=== PATIENT | male | born 1975 | race Caucasian/White ===

== ENCOUNTER 2024-01-26 15:28 | Inpatient (IN) | payer BC ==
[~2024-01-26] VITALS: Ht 167.6 cm; Wt 90.7 kg
[2024-01-26] MEDS ORDERED: HYDRALAZINE 20MG/ML VIAL IV ONE (17:15)
[2024-01-26] MEDS: SODIUM CHLORIDE 0.9% 1,000 ML IV ONE (17:15)
[2024-01-26 18:38] LABS: BASOPHILS % 0.8 % (0.0-2.0); EOSINOPHILS % 0.5 % (0.0-5.0); HEMATOCRIT. 42.2 % (42.0-52.0); LYMPHOCYTES % 26.6 % (20.0-50.0); MEAN CORPUSCULAR HEMOGLOBIN 31.6 pg (28.0-32.0); MEAN CORPUSCULAR HGB CONC 35.7 g/dL (31.0-37.0); MEAN CORPUSCULAR VOLUME 88.5 fL (80.0-94.0); MEAN PLATELET VOLUME 8.5 fl (7.4-10.4); MONOCYTES % 8.8 % (2.0-8.0); NEUTROPHILS % 63.3 % (40.0-76.0); PLATELET 263 x1000/uL (130-400); RED BLOOD CELL COUNT 4.76 mill/uL (4.7-6.1); RED CELL DISTRIBUTION WIDTH 12.7 % (11.6-14.6); WHITE BLOOD COUNT 5.4 x1000/uL (4.5-11.0)
[2024-01-26 18:52] LABS: CHLORIDE 99 mEq/L (98-107); POTASSIUM 4.2 mEq/L (3.5-5.1); SODIUM 134 mEq/L (136-145)
[2024-01-26 18:53] LABS: CALCIUM 9.4 mg/dL (8.7-10.4); CARBON DIOXIDE 29 mEq/L (21-32)
[2024-01-26 18:58] LABS: CREATININE 0.9 mg/dL (0.6-1.3); GLUCOSE 279 mg/dL (70-105); UREA NITROGEN BLOOD 9 mg/dL (9-23)
[2024-01-26 18:59] LABS: TROPONIN I HIGH SENSITIVITY 37 ng/L (3.0-53)
[2024-01-26] MEDS: HYDRALAZINE 20MG/ML VIAL IV NR (20:50)
[2024-01-26] MEDS: CLONIDINE 0.1MG TABLET PO ONE (20:51)
[2024-01-26 22:28] LABS: *AMPHETAMINES SCREEN URINE NEGATIVE (NEGATIVE); *BARBITURATES SCREEN URINE NEGATIVE (NEGATIVE); *BENZODIAZEPINES SCREEN URINE NEGATIVE (NEGATIVE); *COCAINE SCREEN URINE NEGATIVE (NEGATIVE); METHADONE URINE SCREEN NEGATIVE (NEGATIVE)
[2024-01-26 22:29] LABS: CANNABINOID URINE SCREEN NEGATIVE (NEGATIVE); ECSTASY MDMA SCREEN URINE NEGATIVE (NEGATIVE); OPIATES URINE SCREEN NEGATIVE (NEGATIVE); PHENCYCLIDINE URINE SCREEN NEGATIVE (NEGATIVE)
[2024-01-26 22:31] LABS: TROPONIN I HIGH SENSITIVITY 40 ng/L (3.0-53)
[2024-01-27] MEDS ORDERED: IPRATROPIUM/ALBUTEROL 0.5-3(2.5)MG/3ML NEB HHN PRN (00:45)
[2024-01-27] MEDS ORDERED: ONDANSETRON HCL 4MG/2ML INJ IV PRN (00:45)
[2024-01-27] MEDS ORDERED: DOCUSATE SODIUM 100MG CAPSULE PO PRN (00:45)
[2024-01-27] MEDS ORDERED: ACETAMINOPHEN 325MG TABLET PO PRN ×2 (00:45)
[2024-01-27] MEDS ORDERED: DEXTROSE 50% WATER 50ML SYRINGE IV PRN (00:45)
[2024-01-27 06:21] LABS: BASOPHILS % 0.5 % (0.0-2.0); EOSINOPHILS % 0.7 % (0.0-5.0); HEMATOCRIT. 43.5 % (42.0-52.0); HEMOGLOBIN. 14.6 g/dL (14.0-18.0); LYMPHOCYTES % 24.4 % (20.0-50.0); MEAN CORPUSCULAR HEMOGLOBIN 30.5 pg (28.0-32.0); MEAN CORPUSCULAR HGB CONC 33.6 g/dL (31.0-37.0); MEAN CORPUSCULAR VOLUME 90.8 fL (80.0-94.0); MEAN PLATELET VOLUME 8.8 fl (7.4-10.4); MONOCYTES % 8.4 % (2.0-8.0); PLATELET 256 x1000/uL (130-400); RED BLOOD CELL COUNT 4.79 mill/uL (4.7-6.1); RED CELL DISTRIBUTION WIDTH 12.7 % (11.6-14.6); WHITE BLOOD COUNT 5.6 x1000/uL (4.5-11.0)
[2024-01-27 06:29] LABS: D-DIMER < 0.19 mg/L FEU (<0.50); PROTHROMBIN TIME 10.8 sec (9.6-11.0)
[2024-01-27 06:38] LABS: CARBON DIOXIDE 23 mEq/L (21-32); CHLORIDE 102 mEq/L (98-107); POTASSIUM 3.4 mEq/L (3.5-5.1); SODIUM 136 mEq/L (136-145)
[2024-01-27 06:43] LABS: CREATININE 0.7 mg/dL (0.6-1.3); GLUCOSE 245 mg/dL (70-105)
[2024-01-27 06:44] LABS: LDL CHOLESTEROL 134 mg/dL (5-100); TRIGLYCERIDE 130 mg/dL (0-150); UREA NITROGEN BLOOD 8 mg/dL (9-23)
[2024-01-27 06:45] LABS: ALANINE AMINOTRANSFERASE 19 IU/L (10-49); ALBUMIN 4.1 g/dL (3.2-4.8); ASPARTATE AMINOTRANSFERASE 18 IU/L (<34); CREATINE KINASE MB FRACTION 0.8 ng/mL (0.5-3.6)
[2024-01-27 06:46] LABS: BILIRUBIN DIRECT 0.4 mg/dL (<=3.0); BILIRUBIN TOTAL 1.4 mg/dL (0.1-1.0); CHOLESTEROL 206 mg/dL (<200); HDL CHOLESTEROL 53 mg/dL (>55); PHOSPHORUS 2.8 mg/dL (2.5-4.9); PROTEIN TOTAL 6.3 g/dL (6.0-8.3)
[2024-01-27] MEDS: HYDRALAZINE HCL 50MG TABLET PO SCH (06:46)
[2024-01-27 06:49] LABS: T4 FREE 1.24 ng/dL (0.89-1.76)
[2024-01-27] MEDS: BLOOD SUGAR DIAGNOSTIC STRIP TEST SCH (06:49)
[2024-01-27 06:50] LABS: THYROID STIMULATING HORMONE 1.05 uIU/mL (0.55-4.78)
[2024-01-27] MEDS: INSULIN LISPRO 100 UNITS/ML SUBCUT SCH (07:00)
[2024-01-27] MEDS: AMLODIPINE 10MG TABLET PO SCH (09:10)
[2024-01-27] MEDS: FAMOTIDINE 20MG/2ML VIAL IV SCH (09:10)
[2024-01-27] MEDS: ASPIRIN 81MG TABLET PO SCH (09:10)
[2024-01-27] MEDS: ENOXAPARIN 30MG/0.3ML SYR SUBCUT SCH (09:11)
[2024-01-27] MEDS: HYDRALAZINE 20MG/ML VIAL IV PRN (09:11)
[2024-01-27] MEDS: IOHEXOL-350 100 ML BOTTLE ONE (10:56)
[2024-01-27 11:35] VITALS: BP 176/111; PULSE 89; RESP 20; TEMP 35.89176; TEMP 35.9176; O2SAT 98
[2024-01-27] MEDS: CLONIDINE 0.1MG TABLET PO PRN (12:02)
[2024-01-27 16:00] VITALS: BP 132/97; PULSE 106; RESP 18; TEMP 36.3918; O2SAT 99
[2024-01-27 20:00] VITALS: BP 166/121; PULSE 94; RESP 18; TEMP 36.61404; O2SAT 97
[2024-01-27 21:37] LABS: CREATINE KINASE MB FRACTION 1.2 ng/mL (0.5-3.6)
[2024-01-27] MEDS: ATORVASTATIN CALCIUM 40MG TABLET PO SCH (22:46)
[2024-01-28] VITALS: BP 127/89; PULSE 85; RESP 20; TEMP 36.72516; O2SAT 98
[2024-01-28 04:00] VITALS: BP 181/114; PULSE 95; RESP 19; TEMP 36.50292; O2SAT 100
[2024-01-28 07:04] LABS: BASOPHILS % 0.5 % (0.0-2.0); EOSINOPHILS % 0.8 % (0.0-5.0); HEMATOCRIT. 44.7 % (42.0-52.0); HEMOGLOBIN. 15.7 g/dL (14.0-18.0); LYMPHOCYTES % 25.3 % (20.0-50.0); MEAN CORPUSCULAR HEMOGLOBIN 31.2 pg (28.0-32.0); MEAN CORPUSCULAR VOLUME 89.1 fL (80.0-94.0); MEAN PLATELET VOLUME 8.8 fl (7.4-10.4); MONOCYTES % 9.7 % (2.0-8.0); NEUTROPHILS % 63.7 % (40.0-76.0); PLATELET 289 x1000/uL (130-400); RED BLOOD CELL COUNT 5.02 mill/uL (4.7-6.1); RED CELL DISTRIBUTION WIDTH 12.7 % (11.6-14.6); WHITE BLOOD COUNT 5.2 x1000/uL (4.5-11.0)
[2024-01-28 07:07] LABS: CARBON DIOXIDE 26 mEq/L (21-32); CHLORIDE 100 mEq/L (98-107); POTASSIUM 3.5 mEq/L (3.5-5.1); SODIUM 135 mEq/L (136-145)
[2024-01-28 07:08] LABS: CALCIUM 9.6 mg/dL (8.7-10.4)
[2024-01-28 07:13] LABS: CREATININE 0.9 mg/dL (0.6-1.3); GLUCOSE 257 mg/dL (70-105); UREA NITROGEN BLOOD 10 mg/dL (9-23)
[2024-01-28 07:15] LABS: PHOSPHORUS 3.7 mg/dL (2.5-4.9)
[2024-01-28 08:00] VITALS: BP 144/96; PULSE 98; RESP 18; TEMP 36.61404; O2SAT 99
[2024-01-28 12:00] VITALS: BP 157/117; PULSE 90; RESP 18; TEMP 36.6696; O2SAT 99
[2024-01-28 16:00] VITALS: BP 132/96; PULSE 85; RESP 18; TEMP 36.6696; O2SAT 100
[2024-01-28 20:00] VITALS: BP 115/81; PULSE 88; RESP 18; TEMP 36.61404; O2SAT 98
[2024-01-29] VITALS: BP 134/89; PULSE 80; RESP 18; TEMP 36.6696; O2SAT 100
[2024-01-29 04:00] VITALS: BP 138/89; PULSE 80; RESP 18; TEMP 36.55848; O2SAT 100
[2024-01-29 08:00] VITALS: BP 165/110; PULSE 88; RESP 20; TEMP 35.72508; O2SAT 99
[2024-01-29] MEDS: CLOPIDOGREL 75MG TABLET PO SCH (08:39)
[2024-01-29 11:43] LABS: CLARITY URINE CLEAR (CLEAR); COLOR URINE YELLOW (YELLOW); GLUCOSE URINE 3+ (NEGATIVE); KETONES URINE TRACE (NEGATIVE); LEUKOCYTE ESTERASE URINE NEGATIVE (NEGATIVE); NITRITE URINE NEGATIVE (NEGATIVE); OCCULT BLOOD URINE NEGATIVE (NEGATIVE); PH URINE 5.5 (4.5-8.0); PROTEIN URINE NEGATIVE (NEGATIVE); SPECIFIC GRAVITY URINE 1.041 (1.005-1.030)
[2024-01-29 12:00] VITALS: BP 168/111; PULSE 88; RESP 19; TEMP 36.3918; O2SAT 99
[2024-01-29 12:23] LABS: SQUAMOUS EPITHELIAL CELL URINE 1+ /lpf (RARE/1+)
[2024-01-29 12:24] LABS: BACTERIA URINE TRACE; YEAST URINE 1+
[2024-01-29 12:25] LABS: RBC URINE NONE SEEN /hpf (0-2); WBC URINE 0-2 /hpf (0-2)
[2024-01-29 16:00] VITALS: BP 141/99; PULSE 82; RESP 19; TEMP 36.72516; O2SAT 97
[2024-01-29 20:00] VITALS: BP 151/105; PULSE 94; RESP 19; TEMP 35.89176; O2SAT 100
[2024-01-29] MEDS: ATORVASTATIN CALCIUM 40MG TABLET PO SCH (21:19)
[2024-01-30 03:53] VITALS: BP 154/104
[2024-01-30 08:00] VITALS: BP 154/108; PULSE 80; RESP 18; TEMP 36.50292; O2SAT 97
[2024-01-30 12:00] VITALS: BP 185/112; PULSE 82; RESP 20; TEMP 36.6696; O2SAT 99
[2024-01-30 16:00] VITALS: BP 149/111; PULSE 89; RESP 20; TEMP 36.61404; O2SAT 98
[2024-01-30 20:03] VITALS: BP 159/112; PULSE 86; RESP 22; TEMP 36.3918; O2SAT 100
[2024-01-31 01:50] VITALS: PULSE 78; RESP 18; TEMP 37.16964; O2SAT 98
[2024-01-31 04:00] VITALS: BP 140/80; PULSE 84; RESP 20; TEMP 37.00296; O2SAT 98
[2024-01-31 06:33] LABS: CHLORIDE 101 mEq/L (98-107); POTASSIUM 3.8 mEq/L (3.5-5.1); SODIUM 138 mEq/L (136-145)
[2024-01-31 06:34] LABS: CALCIUM 9.3 mg/dL (8.7-10.4); CARBON DIOXIDE 30 mEq/L (21-32)
[2024-01-31 06:39] LABS: GLUCOSE 282 mg/dL (70-105); UREA NITROGEN BLOOD 9 mg/dL (9-23)
[2024-01-31 06:41] LABS: ALANINE AMINOTRANSFERASE 63 IU/L (10-49); ALBUMIN 4.3 g/dL (3.2-4.8); ASPARTATE AMINOTRANSFERASE 55 IU/L (<34); BILIRUBIN TOTAL 1.1 mg/dL (0.1-1.0); PROTEIN TOTAL 6.9 g/dL (6.0-8.3)
[2024-01-31 08:00] VITALS: BP 133/103; PULSE 87; RESP 20; TEMP 37.00296; O2SAT 98
[2024-01-31 12:00] VITALS: BP 150/106; PULSE 88; RESP 20; TEMP 36.50292; O2SAT 98
[2024-01-31] MEDS ORDERED: HYDR50TA39 PO (15:42)
[2024-01-31] MEDS ORDERED: CLOP-31 PO (15:42)
[2024-01-31] MEDS ORDERED: ASPI-1160 PO (15:42)
[2024-01-31] MEDS ORDERED: AMLO10TA80 PO (15:42)
[2024-01-31] MEDS ORDERED: LIP40 PO (15:42)
[2024-01-31 16:00] VITALS: BP 141/100; PULSE 82; RESP 20; TEMP 36.50292
[2024-01-31 17:07] VITALS: BP 141/97; PULSE 82; TEMP 97.7; O2SAT 99
== END 2024-01-31 18:48 | disposition home or self-care (01) | DRG 66 ==
LOC: ER 15:28 → 5WST 20:29 → EDBEDREQ 20:42 → EDBEDREQTM 20:42 → 5WST 01-27 08:21 → 8WST 01-27 11:30
PROVIDERS: ADMIT Internal Medicine; ATTEND Internal Medicine
DX: I63.9 Cerebral infarction, unspecified (principal); E11.65 Type 2 diabetes mellitus with hyperglycemia; I16.0 Hypertensive urgency; E87.6 Hypokalemia; Z68.36 Body mass index [BMI] 36.0-36.9, adult; E78.5 Hyperlipidemia, unspecified; E66.01 Morbid (severe) obesity due to excess calories; E88.810 Metabolic syndrome; Z86.73 Personal history of transient ischemic attack (TIA), and cerebral infarction without residual deficits; Z83.3 Family history of diabetes mellitus
CPT/HCPCS: 36415; 70496; 70498; 70551; 71045; 80048; 80053; 80061; 80076; 80305; 81003; 82550; 82553; 82962; 83036; 83735; 83880; 84100; 84439; 84443; 84480; 84484; 85025; 85379; 93005; 93306; 99285; J0360; J1650; J1815; J3490; J7030; Q9967